=== PATIENT | female | born 1965 | race Caucasian/White ===

== ENCOUNTER 2017-08-15 10:03 | Emergency (ER) | payer OTHER ==
[~2017-08-15] VITALS: Ht 160 cm; Wt 76.0 kg
[2017-08-15 11:20] VITALS: BP 141/73
== END 2017-08-15 11:20 | disposition home or self-care (01) | DRG 951 ==
LOC: ED 10:03
DX: Z77.098 Contact with and (suspected) exposure to other hazardous, chiefly nonmedicinal, chemicals (principal); R20.0 Anesthesia of skin; Y92.238 Other place in hospital as the place of occurrence of the external cause